=== PATIENT | male | born 1935 | race African-American/Black ===

== ENCOUNTER 2017-09-27 10:08 | Outpatient (CLI) | payer MEDICARE ==
[2017-09-27 12:02] LABS: Hematocrit 39.8 % (42.0-52.0); Mean Platelet Volume 9.6 fL (7.4-10.4); Red Blood Cell (RBC) Count 4.51 mill/uL (4.70-6.10); White Blood Cell (WBC) Count 8.4 thou/uL (4.8-10.8)
[2017-09-27 12:09] LABS: PTT 31.5 SEC (22.9-36.1); Prothrombin Time 14.4 SEC (12.0-14.7)
[2017-09-27 12:23] LABS: Anion Gap 12 mmol/L (10-20); BUN (Urea Nitrogen) 19 mg/dL (8.4-25.7); Calc. Creatinine Clearance 0 mL/min (70-130); Calcium 9.8 mg/dL (7.8-10.44); Carbon Dioxide 24 mmol/L (23-31); Chloride 104 mmol/L (98-107); Estimated GFR-MDRD Greater than 90
== END 2017-09-27 10:09 | disposition home or self-care (01) ==
LOC: LABBT 10:08
PROVIDERS: ATTEND Surgery
DX: Z01.818 Encounter for other preprocedural examination (principal); M47.12 Other spondylosis with myelopathy, cervical region; M47.22 Other spondylosis with radiculopathy, cervical region
CPT/HCPCS: 80048; 85027; 85610; 85730; 87081

== ENCOUNTER 2017-09-27 10:30 | Inpatient (IN) | payer MEDICARE ==
[2017-10-04] MEDS ORDERED: Thrombin 5000 UNITS/5 ML VIAL ONE (06:36)
[2017-10-04] MEDS ORDERED: Bacitracin Zinc Ointment 30 gm TUBE ONE (06:36)
[2017-10-04] MEDS ORDERED: Sodium Chloride 0.9% 20 ML ONE (06:36)
[2017-10-04] MEDS ORDERED: CEFAZOLIN/Water 2 GM/20 ML SYRINGE ONE (06:56)
[2017-10-04] MEDS ORDERED: Phenylephrine 10 MG/NS 250 ML 250 ML ONE (08:11)
[2017-10-04] MEDS ORDERED: Dexamethasone 20 MG/5 ML VIAL ONE ×2 (09:48→16:58)
[2017-10-04] MEDS ORDERED: Promethazine HCl 25 MG/ML VIAL SLOW IVP PRN (12:58)
[2017-10-04] MEDS ORDERED: Promethazine HCl 25 MG/ML VIAL IM PRN ×2 (12:58→13:46)
[2017-10-04] MEDS ORDERED: Meperidine HCl/PF 25 MG/ML VIAL SLOW IVP PRN (12:58)
[2017-10-04] MEDS ORDERED: Ondansetron HCl/PF 4 MG/2 ML Vial IVP PRN ×2 (12:58→13:46)
[2017-10-04] MEDS ORDERED: Acetaminophen 325 MG TAB PO PRN (13:46)
[2017-10-04] MEDS ORDERED: Mag-Al 1200 mg/1200 mg/30 ML UDCUP PO PRN (13:46)
[2017-10-04] MEDS ORDERED: Acetaminophen/Codeine 30-300mg Tablet PO PRN (13:46)
[2017-10-04] MEDS ORDERED: Bisacodyl 10 MG SUPP PR PRN (13:46)
[2017-10-04] MEDS ORDERED: tiZANidine HCl 4 MG TAB PO PRN (13:46)
[2017-10-04] MEDS ORDERED: Milk Of Magnesia 30 ML UDCUP PO PRN (13:46)
[2017-10-04] MEDS ORDERED: Fleet Enema 133 ML BOT PR PRN (13:46)
[2017-10-04] MEDS ORDERED: Naloxone HCl 0.4 mg/ml Vial ONE ×2 (13:57→17:14)
[2017-10-04] MEDS ORDERED: CEFAZOLIN/Water 2 GM/20 ML SYRINGE SLOW IVP SCH (14:00)
[2017-10-04] MEDS ORDERED: SUGAMMADEX SODIUM 200 MG/2 ML VIAL ONE (14:12)
[2017-10-04] MEDS ORDERED: SUGAMMADEX SODIUM 500 MG/5 ML VIAL ONE (14:15)
--- NOTE | 2017-10-04 14:44 | OP ---
DATE OF PROCEDURE: 10/04/2017 OR: OR #12. WOUND TYPE: Type 1 wound. SURGEON: Benedict Saucedo M.D. [employer] COMPLIANCE MANAGER: Abhilash Shaw PA-C. PREPROCEDURE DIAGNOSES: Severe cervical stenosis C3-C5 with spinal cord compression and neurological decline. POSTPROCEDURE DIAGNOSES: Severe cervical stenosis C3-C5 with spinal cord compression and neurologica l decline. PROCEDURE: 1. Anterior C3-C4, C4-C5 diskectomies for decompression of the spinal cord and nerve roots. 2. Placement of interbody spacers C3-C4, C4-C5 for arthrodesis with interbody spacers packed with lo gabriella bone autograft C3-C4, C4-C5. 3. Anterior cervical plate and screw fixation C3, C4, C5 for effusion. 4. Use of operative microscope for microdissection. 5. Cervical laminectomy, C3, C4, C5 for decompression of the spinal cord and nerves. 6. Posterior cervical stabilization, C3, C4, C5 bilaterally with screw tigist construct. 8. Posterolateral fusion C3, C4, C5, local bone autograft obtained from same incision and allograft with screw tigist fixation C3, C4, C5. PROCEDURE: After informed consent was obtained from the patient, the patient brought to OR 12. [facility] patient pause and identification was carried out. He was placed under excellent general endotrach eal anesthesia and positioned supine on the operating room table. All appropriate points were padded . We identified the right anterior oblique sophia that would allow for approach to the C3, C4, C5 segm ents and this region was sterilely cleansed, prepared, and draped. Proper patient pause and identifi cation was carried out. The wound was then opened with a combination of sharp, monopolar and blunt dissection, and we proceeded lateral to the larynx and pharynx and medial to the right carotid sheath . We identified the prevertebral layer of deep cervical fascia and the C3, C4, C5 segments were expo sed. Retraction was placed and distraction occurred at C3-C4. The microscope was then brought in th e field for microdissection and diskectomy at C3-C4 was performed. We were satisfied with the decomp ression of the spinal cord and nerves roots at that segment. We then turned our attention to prepara tion of the endplates and an interbody spacer of appropriate dimension was placed at C3-C4. This was packed with local bone autograft obtained from same incision and allograft. We then released the di straction and performed distraction at C4-C5 and a diskectomy at C4-C5 was performed as well with sat isfactory decompression of the spinal cord and nerve roots. We prepared the endplates and an interbo dy spacer of appropriate dimension was placed at C4-C5. This was packed with local bone autograft ob tained from same incision and allograft. Following the placement of the spacers at C3-C4, C4-C5 the microscope was then removed and anterior cervical plate and screw fixation at C3,C4, C5 then occurred . Final tightening also occurred. Copious irrigation. Hemostasis was maintained throughout. The w ound was then closed in anatomic layers over a drain. The patient then emerged from anesthesia. We then turned our attention to placement of the Claire eugenia to his skull and positioned him pron e on the operating room table with his cervical spine kept in neutral position. We turned our attent ion to identifying the posterior sophia that would allow for approach to C3, C4, C5 segments. This reg ion was sterilely cleansed, prepared, and draped. Proper patient pause and identification was miguel a martinez. The wound was then opened with a combination of sharp, monopolar and blunt dissection, C3, C4 , and C5 dorsal spines and lamina were exposed. Localization film confirmed our area of interest. W e then performed C3, C4, C5 laminectomies, partial facetectomies and foraminotomies with excellent de compression of the common dural tube and nerve roots. Following this, we then turned our attention t o placement of screw tigist fixation at C3, C4, C5 using standard anatomic landmarks and technique along with fluoroscopy. Screws were placed, we had excellent decompression of the spinal cord and nerve r oots. Rods were then placed. Final tightening occurred. Copious irrigation occurred. Hemostasis w as maximized throughout. Decortication occurred along the lateral masses for arthrodesis at C3, C4, C5, posterolateral fusion and local bone autograft obtained from same incision and allograft was plac ed over this region. Final tightening of the screws and rods occurred with cap screws. The wound wa s then closed in anatomic layers following the sprinkling of vancomycin powder, meticulous hemostasis and copious irrigation. The patient then emerged from anesthesia.
[2017-10-04 15:13] LABS: Oxyhemoglobin 79.4 % (94.0-97.0); Sodium 143 mmol/L (135-148)
[2017-10-04 15:15] LABS: Mode BAGGING; Modified Allen's Test POSITIVE; Vent NO
[2017-10-04 15:44] LABS: Troponin I Less than 0.010 ng/mL (< 0.028)
--- NOTE | 2017-10-04 15:51 | RAD ---
PORTABLE SEMI UPRIGHT FRONTAL CHEST RADIOGRAPH: Date: 10-04-17 Comparison: None. History: Respiratory distress, status post code. FINDINGS: Incompletely imaged cutaneous catrina overlie the base of the neck and curls at the base of the neck on the right as well. There is focal right perihilar and infrahilar airspace disease, nonspecific. Th ere is increased density in the left base suggesting left lower lobe consolidation/collapse. IMPRESSION: Focal areas of opacity in the right perihilar/infrahilar region in the left lung base. Findings may s ignify infectious pneumonitis, aspiration or volume loss. Follow up imaging advised to document resol ution. POS: KAYODE
[2017-10-04 16:20] LABS: Modified Allen's Test POSITIVE; Sodium 139 mmol/L (135-148)
[2017-10-04 16:22] LABS: Mode NIPPV; Pressure Support 10 cmH2O; Vent YES
[2017-10-04] MEDS: Gabapentin 300 MG CAP PO SCH ×2 (16:33→20:14)
[2017-10-04] MEDS: Sodium Chloride 0.9% 1,000 ML IV SCH (16:35)
[2017-10-04] MEDS ORDERED: EPINEPHrine 1 MG/10 ML Abboject SYRINGE ONE (16:39)
[2017-10-04] MEDS ORDERED: Ondansetron HCl/PF 4 MG/2 ML Vial ONE (16:58)
[2017-10-04] MEDS ORDERED: ePHEDrine/0.9% NaCl/PF SYRINGE 50 mg/10 ml ONE (16:58)
[2017-10-04] MEDS ORDERED: Lidocaine 1% PF 5 ML VIAL ONE (16:58)
[2017-10-04] MEDS ORDERED: Propofol 200 MG/20 ML VIAL ONE (16:58)
[2017-10-04] MEDS ORDERED: Glycopyrrolate 0.2 MG/ML 5 ML SYRINGE ONE (16:58)
[2017-10-04] MEDS ORDERED: Vecuronium 10 MG VIAL ONE (16:58)
[2017-10-04] MEDS ORDERED: PHENYLEPHRINE-NS 100 MCG/ML 10 ML SYRINGE ONE (16:58)
[2017-10-04 18:37] LABS: Troponin I 0.027 ng/mL (< 0.028)
[2017-10-04] MEDS: Morphine 4 MG/ML VIAL SLOW IVP PRN ×3 (18:41→22:56)
[2017-10-04] MEDS: CEFAZOLIN/Water 2 GM/20 ML SYRINGE SLOW IVP SCH (19:13)
[2017-10-04] MEDS: HYDROcodone/Acetaminophen 7.5/325 mg Tablet PO PRN (19:13)
[2017-10-04] MEDS: PROVENTIL INHALER 6.7 G (200 INHALATIONS) INH SCH (19:25)
[2017-10-04] MEDS: hydrALAZINE 20 MG/ML VIAL SLOW IVP PRN (19:44)
[2017-10-04] MEDS: Timolol 0.5% Ophth Soln 5 ml Bottle EA EYE SCH (20:13)
[2017-10-04] MEDS: Brimonidine Tartrate 0.2% Ophth Soln 5 ml Bottle EA EYE SCH (20:18)
--- NOTE | 2017-10-04 21:50 | CON ---
DATE OF CONSULTATION: 10/04/2017 REASON FOR ADMISSION: Cervical stenosis status post anterior cervical diskectomy and fusion. REASON FOR CONSULTATION: Cardiac arrest and medical management of high blood pressure and obstructiv e sleep apnea. CONSULTING PHYSICIAN: Dr. Benedict Saucedo. HISTORY OF PRESENT ILLNESS: This is an 82-year-old pleasant gentleman who was apparently in his [facility], came into the hospital because he was having significant cervical stenosis with sy mptoms and had ACDF procedure done. In the recovery period, in the PACU, he had a cardiac arrest, wh ich lasted about 2 minutes and they initiated CPR. On looking through the notes, I believe the cord was done for asystole. They got pulse immediately. He got 3 rounds of Narcan. Later, he had a stro ng pulse and blood pressure and was breathing on his own. He was later sent to the CCU for further i ntensive monitoring. I have been consulted for the evaluation and treatment of medical problems. Th e patient right now is awake and alert. He is a little disoriented because he is post-anesthesia, bu t he answers most of the questions appropriately. He is on BiPAP and the vital signs are stable. He denies any fever or chills. Admits to some pain in the area of the surgery. Denies any shortness o f breath at this point. PAST MEDICAL HISTORY: Significant for morbid obesity, anemia, neuropathy, bilateral cataract, hypert ension, history of cerebral infarction on 05/2017, asthma, chronic obstructive lung disease, knee estrada n, neck pain, spinal stenosis, chronic back pain and polymyalgia rheumatica. PAST SURGICAL HISTORY: Significant for inguinal hernia repair and ACDF procedure right now. ALLERGIES: No known drug allergies. MEDICATIONS AT HOME: Include amlodipine 10 mg, aspirin, atorvastatin, benazepril 40 mg p.o. daily, e yedrops, furosemide 20 mg p.o. daily, gabapentin 300 p.o. 3 times a day, Lumigan eyedrops, spironolac tone 25 p.o. daily, Flomax 0.4 mg daily and neb treatments. FAMILY HISTORY: Negative for diabetes and hypertension. SOCIAL HISTORY: He was a former smoker, no longer smokes. Alcohol: Does not drink alcohol. Does n ot do any recreational drugs. He is .' REVIEW OF SYSTEMS: Significant for status post cardiac arrest. Otherwise, no fever, no chills, no h eadache, no eye pain, no hearing loss, no latencies. No cough. Some shortness of breath. No diarrh ea, dysuria or polyuria. No memory or mood changes. No neck pain. PHYSICAL EXAMINATION: VITAL SIGNS: The patient's blood pressure right now is 169/83, pulse is 85, satting 95%, breathing a t the rate of 20 on BiPAP with a pressure of 12/6. GENERAL: The patient is lying in bed in some distress because of the pain. HEENT: Atraumatic and normocephalic. Pupils are equally round and reactive to light. Extraocular m ovements are intact. Mucous membranes are moist. NECK: Supple. There is a dressing in place at the site of surgery. CHEST: Some coarse breath sounds heard, otherwise good air entry in the upper lobes. HEART: S1 and S2 normal. No murmurs or gallops. ABDOMEN: Soft and obese. EXTREMITIES: No cyanosis, clubbing or edema. No cyanosis present. Edema +1 present. Distal pulses are palpable. NEUROLOGIC: Cannot be fully evaluated, but he will follow simple commands. Moves all 4 extremities. LABORATORY DATA: Postop labs include ABG, which shows a pH of 7.34, pCO2 of 47 and pO2 of 54. ABG a t 4:00 showed a pH of 7.13, pCO2 of 87 and O2 of 81. Troponin was 0.01. Hemoglobin from 09/27 was 1 2.6. WBC was 8.4. Sodium is 135. Creatinine was 0.95 and BUN is 19. ASSESSMENT AND PLAN: 1. Status post cardiac arrest. He is doing well right now. We will monitor him in the ICU. We brittany l trend troponins, get Cardiology consult and get an echocardiogram. 2. Respiratory insufficiency, on BiPAP. We will follow Dr. Farias's plan. 3. Severe cervical stenosis status post anterior cervical diskectomy and fusion. We will follow marjan bullock's plan. 4. Hypertension. We will monitor hypertension and put him on p.r.n. hydralazine. 5. Morbid obesity. The patient has been counseled. 6. Obstructive sleep apnea, possible on BiPAP. 7. History of chronic obstructive pulmonary disease. Appears to be stable right now. 8. Chronic back pain. We will do pain management. 9. Sequential compression devices for deep venous thrombosis prophylaxis. Thanks Dr. Saucedo for letting me participate in this patient's care. I will work with consultants an d further caring for the patient.
[2017-10-04] MEDS ORDERED: cloNIDine 0.2mg/24 Hour PATCH TD SCH (23:00)
[2017-10-05] MEDS: hydrALAZINE 20 MG/ML VIAL SLOW IVP PRN ×3 (00:34→23:04)
[2017-10-05 00:44] LABS: Troponin I 0.027 ng/mL (< 0.028)
[2017-10-05] MEDS: CEFAZOLIN/Water 2 GM/20 ML SYRINGE SLOW IVP SCH ×3 (03:46→19:49)
[2017-10-05] MEDS: Sodium Chloride 0.9% 1,000 ML IV SCH (03:47)
[2017-10-05] MEDS: Morphine 4 MG/ML VIAL SLOW IVP PRN (03:51)
[2017-10-05 06:01] LABS: Band 3 % (5-11); Hematocrit 39.4 % (42.0-52.0); Mean Platelet Volume 10.8 fL (7.4-10.4); Neutrophil 83 % (42-75); Red Blood Cell (RBC) Count 4.49 mill/uL (4.70-6.10); White Blood Cell (WBC) Count 20.2 thou/uL (4.8-10.8)
--- NOTE | 2017-10-05 06:21 | CON ---
DATE OF CONSULTATION: 10/04/2017 HISTORY OF PRESENT ILLNESS: Kb Correa is an 82-year-old morbidly obese gentleman, who under went cervical surgery C3-C5, C3-C5 laminectomy and posterior fusion postoperatively. Apparently what he was told that he was having difficulty breathing, he was already extubated. He was given apparen tly 3 amps of Narcan as per the nurses' notes, he was placed on noninvasive ventilation and transferr ed to the ICU. He had been consulted at this time. He is on a BiPAP. History is rather sketchy at this time because on the BiPAP. He appears to answer questions appropri ately, several of his initial blood gases showed evidence of respiratory acidosis with the pH of 7.29 , pCO2 of 50, pO2 of 67 and unknown FiO2. Initial information from the medical records is [facility]. He has had ce rvical pain for a period of time. MRI was done, which was reviewed by Dr. Saucedo and surgery was don e as of today, please review Dr. Saucedo's extensive surgical note. Postop anesthesia note, for which he had respiratory distress, requiring apparently no medication, but is . MEDICATIONS: He has a long list of medication from home, which is outlined including eyedrops for gl aucoma, Lumigan, aspirin, gabapentin 300 three times, Lipitor 20, Timolol, Combigan, Ventolin inhaler , Flomax, and Lasix. PAST MEDICAL HISTORY: Pertinent for COPD, cervical radiculopathy, glaucoma, probably congestive hear t failure, morbid obesity, anemia, asthma by history, COPD by history, BPH. PAST SURGICAL HISTORY: Included inguinal hernia surgery. REVIEW OF SYSTEMS: Unobtainable. PHYSICAL EXAMINATION: VITAL SIGNS: His sats are 93 at a BiPAP 12/6, rate of 8, pulse 85, blood pressure 150/82. GENERAL: He is awake, responsive. CHEST: Decreased breath sounds without any wheezing. CARDIAC: Normal S1 and S2. No gallops. ABDOMEN: No masses. EXTREMITIES: No edema. LABORATORY AND X-RAY FINDINGS: Chest x-ray shows a questionable right-sided infiltrate. His lab oth erwise shows from [place], white count 8000, H&H are 12 and 39, platelet count was normal. INR was n ormal. Creatinine was normal. Electrolytes are normal. Calcium is normal, glucose 106. IMPRESSION: 1. Hypoventilation post cervical spine surgery. 2. Morbid obesity. 3. Chronic obstructive pulmonary disease. 4. Probably sleep apnea. 5. Polymyalgia. 6. Benign prostatic hypertrophy. 7. Hypertension. PLAN: I have started aggressive neb treatments. Continue noninvasive ventilation until much more aw celena and empiric antibiotics, supportive care. We will follow. Forty-five minutes critical care time.
[2017-10-05 06:46] LABS: Anion Gap 14 mmol/L (10-20); BUN (Urea Nitrogen) 18 mg/dL (8.4-25.7); Calc. Creatinine Clearance 128 mL/min (70-130); Carbon Dioxide 22 mmol/L (23-31); Chloride 106 mmol/L (98-107); Estimated GFR-MDRD Greater than 90
--- NOTE | 2017-10-05 07:45 | EKG ---
Test Reason : POST CODE BLUE Blood Pressure : / mmHG Vent. Rate : 097 BPM Atrial Rate : 097 BPM P-R Int : 172 ms QRS Dur : 086 ms QT Int : 390 ms P-R-T Axes : 061 025 030 degrees QTc Int : 495 ms Normal sinus rhythm Nonspecific ST abnormality Prolonged QT Abnormal ECG No previous ECGs available Confirmed by SHIRLEY ELLSWORTH ([id number]) on 10/05/2017 7:45:22 AM Referred By: TAI Confirmed By:SHIRLEY ELLSWORTH
[2017-10-05] MEDS: PROVENTIL INHALER 6.7 G (200 INHALATIONS) INH SCH (07:46)
--- NOTE | 2017-10-05 07:59 | RAD ---
AP VIEW OF THE CHEST: INDICATION: Daily CCU exam. COMPARISON: Prior exam dated 10/04/17. FINDINGS: Cardiomegaly and central edema pattern has worsened. There are now small bilateral pleural effusions that have increased in size. No pneumothorax is evident. No acute osseous abnormality is evident. IMPRESSION: Worsening volume overload or congestive heart failure. POS: SERA
--- NOTE | 2017-10-05 08:49 | PRG ---
DATE OF SERVICE: 10/05/2017 This morning he is awake, alert, responsive. He is off the BiPAP. No major distress. PHYSICAL EXAMINATION: VITAL SIGNS: Sats are 90% on 2 liters, pulse 99, blood pressure 180/70, respirations 26. CHEST: Chest revealed decreased breath sounds without any wheezing. CARDIAC: Normal S1-S2. ABDOMEN: Soft. No masses. LABORATORY: Shows his white count 20,000, H&H 12 and 39, platelet 140. X-ray shows a right-sided infiltrate. Creatinine is normal. Potassium 5.8. IMPRESSION: 1. Respiratory failure, possibly aspiration pneumonia. 2. Morbid obesity, probably sleep apnea. 3. Chronic obstructive pulmonary disease. 4. Hypertension. 5. Cervical fusion surgery. PLAN: Await results of the echo. I have added Maxipime, neb treatments, supportive care. Continue observation in the ICU. I will follow.
[2017-10-05] MEDS ORDERED: Cefepime 2 GM in Sodium Chloride 0.9% 100 ML IVPB SCH (09:00)
[2017-10-05] MEDS: Furosemide 20 MG TAB PO SCH (09:09)
[2017-10-05] MEDS: Atorvastatin Calcium 20 MG TAB PO SCH (09:09)
[2017-10-05] MEDS: Gabapentin 300 MG CAP PO SCH ×3 (09:09→20:12)
[2017-10-05] MEDS: Brimonidine Tartrate 0.2% Ophth Soln 5 ml Bottle EA EYE SCH ×2 (09:09→20:15)
[2017-10-05] MEDS: Tamsulosin HCl 0.4 MG CAP PO SCH (09:10)
[2017-10-05] MEDS: Latanoprost 0.005% Ophth Soln 2.5 ml Bottle EA EYE SCH (09:10)
[2017-10-05] MEDS: Losartan 25 MG TAB PO SCH (09:10)
[2017-10-05] MEDS: Timolol 0.5% Ophth Soln 5 ml Bottle EA EYE SCH ×2 (09:10→20:16)
--- NOTE | 2017-10-05 09:28 | PRG ---
DATE OF SERVICE: 10/05/2017 Mr. Corera is postoperative day 1 from an anterior posterior decompression and fusion of the cervic al spine with severe spinal cord compression and neurological decline. In the immediate postoperativ e period, he required extra and pulmonary assistance given that he was retaining carbon dioxide. His respiratory acidosis was corrected. The patient this morning is doing well. His chest x-ray shows pulmonary edema and our medical colleagues work toward reducing his volume overload. Neurologically, he is at his baseline and states improvement in his hand function and sensation. He moves all extre mities to command. He is tolerating some orals. We will keep him on clears and initiate Lovenox. W e will continue to follow him in the ICU.
[2017-10-05] MEDS: Cefepime 2 GM, Syringe 2.5 ML in Sterile Water 10 ML SLOW IVP SCH ×2 (09:58→20:28)
[2017-10-05] MEDS: HYDROcodone/Acetaminophen 7.5/325 mg Tablet PO PRN ×2 (11:26→16:11)
[2017-10-05] MEDS: traMADol HCl 50 MG TAB PO PRN (12:38)
--- NOTE | 2017-10-05 15:38 | PDOC.PN ---
- Subjective Encounter Start Date: 10/05/17 Encounter Start Time: 15:37 doing better more alert no n/v no f/c - Objective MAR Reviewed: Yes Vital Signs & Weight: Vital Signs (12 hours) Temp Pulse Pulse Pulse Resp BP BP 10/05/17 13:48 100 24 H 10/05/17 12:00 99.1 F 10/05/17 10:26 98 176/67 H 10/05/17 10:02 99 193/78 H 10/05/17 09:10 99 173/56 H 10/05/17 09:05 88 94 173/56 H 10/05/17 07:56 10/05/17 07:54 99 24 H 10/05/17 07:45 98.9 F 97 23 H 10/05/17 07:00 98.9 F 10/05/17 04:00 98.3 F BP Pulse Ox Pulse Ox 10/05/17 13:48 94 L 10/05/17 12:00 10/05/17 10:26 100 10/05/17 10:02 10/05/17 09:10 10/05/17 09:05 182/67 H 10/05/17 07:56 99 10/05/17 07:54 100 10/05/17 07:45 100 10/05/17 07:00 10/05/17 04:00 Weight Weight 318 lb 9.087 oz Most Recent Monitor Data Heart Rate from ECG 100 NIBP 192/66 NIBP BP-Mean 79 Respiration from ECG 31 SpO2 92 I&O: 10/04/17 10/05/17 10/06/17 06:59 06:59 06:59 Intake Total 978 Output Total 5778 1115 Balance -647 -1115 Result Diagrams: 10/05/17 04:17 10/05/17 06:11 Phys Exam - Physical Examination Constitutional: NAD HEENT: PERRLA Neck: no nodes dressing noted Respiratory: no wheezing Cardiovascular: no significant murmur Gastrointestinal: soft Musculoskeletal: pulses present Neurological: moves all 4 limbs Psychiatric: A&O x 3 Dx/Plan (1) Cardiac arrest Code(s): I46.9 - CARDIAC ARREST, CAUSE UNSPECIFIED Status: Acute Comment: trop neg f/u card plan (2) Respiratory insufficiency Code(s): R06.89 - OTHER ABNORMALITIES OF BREATHING Status: Acute Comment: possible asp pna (3) ANDREW (obstructive sleep apnea) Code(s): G47.33 - OBSTRUCTIVE SLEEP APNEA (ADULT) (PEDIATRIC) Status: Acute (4) Morbid obesity Code(s): E66.01 - MORBID (SEVERE) OBESITY DUE TO EXCESS CALORIES Status: Acute (5) COPD (chronic obstructive pulmonary disease) Status: Acute (6) Cervical stenosis of spinal canal Code(s): M48.02 - SPINAL STENOSIS, CERVICAL REGION Status: Acute Comment: s/ p acdf on 10/04 (7) Elevated WBC count Code(s): D72.829 - ELEVATED WHITE BLOOD CELL COUNT, UNSPECIFIED Status: Acute - Plan * add cefepime * f/u nsx and stores clerk plan
[2017-10-05] MEDS ORDERED: Metoprolol Tartrate 5 MG/5 ML VIAL IVP SCH (16:12)
[2017-10-05] MEDS ORDERED: Furosemide 20 MG/2 ML VIAL SLOW IVP SCH (16:15)
[2017-10-05] MEDS ORDERED: Amlodipine 5 MG TAB PO SCH (16:30)
[2017-10-05] MEDS: cloNIDine 0.2 MG TAB PO SCH (20:12)
[2017-10-05] MEDS: Enoxaparin Sodium 40 MG/0.4 ML SYRINGE SC SCH (20:13)
--- NOTE | 2017-10-05 21:35 | CON ---
DATE OF CONSULTATION: 10/05/2017 REASON FOR CONSULTATION: Hypertension, respiratory insufficiency post-surgery. HISTORY OF PRESENT ILLNESS: Mr. Correa is an 82-year-old gentleman. He came in for cervical spine surgery yesterday and in the early postoperative period, he was extubated, but then had a respirator y arrest and apparently had to be ventilated and given Narcan and the patient improved and was transp orted to the Intensive Care Unit. There is no cardiac history that I can ascertain. Patient has been hypertensive with difficulty in controlling of his blood pressure. PAST MEDICAL HISTORY: 1. Cervical spine stenosis, status post surgery. 2. History of anemia. 3. Hypertension 4. History of cerebral infarction in 05/2017. 5. Chronic obstructive pulmonary disease. PAST SURGICAL HISTORY: Inguinal hernia repair. ALLERGIES: None known. HOME MEDICATIONS: 1. Amlodipine 10 mg daily. 2. Atorvastatin. 3. Benazepril. 4. Furosemide. FAMILY HISTORY: Negative for diabetes or hypertension. SOCIAL HISTORY: Former smoker. No longer smokes. REVIEW OF SYSTEMS: Constitutional: No significant weight gain or loss. Vision: No changes. Heari ng: No changes. Pulmonary: No cough or wheezing. Gastrointestinal: No nausea, vomiting, or diarr hea. Cardiovascular: No chest pain. Skin: No rashes. PHYSICAL EXAMINATION: GENERAL: A pleasant elderly gentleman, in no distress. VITAL SIGNS: Blood pressure 180/72, pulse 103, it is regular. HEENT: Eyes, sclerae nonicteric. Mouth, mucous membranes moist. NECK: Supple. No lymphadenopathy. LUNGS: Clear. No wheezing, rales or rhonchi. CARDIAC: Normal S1, normal S2. There is no murmur, rub, or gallop. EXTREMITIES: There is 1+ edema. SKIN: Warm and dry. PERTINENT LABORATORY AND X-RAY FINDINGS: Potassium is 5.8. EKG, no acute ischemia, sinus rhythm. I do not see an EKG from today. We will order one. ASSESSMENT: 1. Respiratory failure after extubation, reverse with Narcan. 2. Hypertension, difficult to control. 3. Hyperkalemia. PLAN: 1. We will give a single dose of furosemide. 2. A single dose of metoprolol IV and then selective beta-jennifer orally. 3. Resume amlodipine, which I believe he is on previously.
[2017-10-06] MEDS: CEFAZOLIN/Water 2 GM/20 ML SYRINGE SLOW IVP SCH (03:14)
[2017-10-06 05:03] LABS: Hematocrit 37.8 % (42.0-52.0); Neutrophil 88 % (42-75); Red Blood Cell (RBC) Count 4.41 mill/uL (4.70-6.10); White Blood Cell (WBC) Count 18.6 thou/uL (4.8-10.8)
[2017-10-06 05:14] LABS: Anion Gap 12 mmol/L (10-20); BUN (Urea Nitrogen) 17 mg/dL (8.4-25.7); Calc. Creatinine Clearance 133 mL/min (70-130); Calcium 9.1 mg/dL (7.8-10.44); Carbon Dioxide 24 mmol/L (23-31); Chloride 104 mmol/L (98-107); Estimated GFR-MDRD Greater than 90
[2017-10-06] MEDS: Brimonidine Tartrate 0.2% Ophth Soln 5 ml Bottle EA EYE SCH ×2 (09:25→21:19)
[2017-10-06] MEDS: Atorvastatin Calcium 20 MG TAB PO SCH (09:25)
[2017-10-06] MEDS: cloNIDine 0.2 MG TAB PO SCH ×3 (09:25→21:16)
[2017-10-06] MEDS: Amlodipine 5 MG TAB PO SCH (09:25)
[2017-10-06] MEDS: Furosemide 20 MG TAB PO SCH (09:26)
[2017-10-06] MEDS: Latanoprost 0.005% Ophth Soln 2.5 ml Bottle EA EYE SCH (09:26)
[2017-10-06] MEDS: Timolol 0.5% Ophth Soln 5 ml Bottle EA EYE SCH ×2 (09:26→21:17)
[2017-10-06] MEDS: Tamsulosin HCl 0.4 MG CAP PO SCH (09:26)
[2017-10-06] MEDS: Losartan 25 MG TAB PO SCH (09:26)
[2017-10-06] MEDS: Gabapentin 300 MG CAP PO SCH ×3 (09:26→21:16)
--- NOTE | 2017-10-06 09:28 | HP ---
DATE OF SERVICE: 10/06/2017 This morning he is awake, alert, responsive. He has had breakfast. He denies any difficulty breathi ng. PHYSICAL EXAMINATION: VITAL SIGNS: Blood pressure is still elevated 165/83, respirations 30, temperature 99. CHEST: Chest revealed bilateral crackles. CARDIAC: Normal S1-S2. ABDOMEN: Soft. No masses. LABORATORY: White count 18,000, H&H 12 and 37, platelet count is 117. Electrolytes are normal. X-ray shows infiltrates. Cultures are so far negative. Echocardiogram shows his EF was normal. IMPRESSION: 1. Pneumonia. 2. Morbid obesity. 3. Sleep apnea. 4. Status post cervical injury. 5. Hypertension. PLAN: He is on Norvasc, Catapres, antibiotics, neb treatments, supportive care. I will follow. He can be transferred out of the ICU.
--- NOTE | 2017-10-06 09:42 | RAD ---
PORTABLE SEMIUPRIGHT FRONTAL CHEST RADIOGRAPH: Date: 10-06-17 Comparison: 10-05-17 History: FINDINGS: There is post-operative hardware overlying the lower cervical spine, incompletely imaged. Catheter tu emma curls over the thoracic inlet on the right. No obvious pneumothorax is seen. There is pulmonary vascular congestion. There is interstitial and al veolar opacity and bilateral perihilar regions in both lung bases, left greater than right, grossly u nchanged. IMPRESSION: No significant interval change. POS: KAYODE
[2017-10-06] MEDS: Cefepime 2 GM, Syringe 2.5 ML in Sterile Water 10 ML SLOW IVP SCH ×2 (09:49→21:16)
[2017-10-06] MEDS ORDERED: Dextrose 50% Abboject 50 ML SYRINGE SLOW IVP PRN (10:02)
[2017-10-06] MEDS ORDERED: HumaLOG 300 UNITS/3 ML VIAL SC PRN (10:02)
[2017-10-06] MEDS ORDERED: Dextrose 5% in Water 1,000 ML IV PRN (10:02)
--- NOTE | 2017-10-06 12:48 | PDOC.PN ---
- Subjective Encounter Start Date: 10/06/17 Encounter Start Time: 12:46 Patient seen and examined. No new complaints. No overnight events - Objective MAR Reviewed: Yes Vital Signs & Weight: Vital Signs (12 hours) Temp Pulse Resp BP Pulse Ox 10/06/17 12:00 98.8 F 10/06/17 11:31 87 32 H 97 10/06/17 09:26 88 164/68 H 10/06/17 09:25 89 164/68 H 10/06/17 08:00 99.1 F 10/06/17 07:57 99.1 F 96 30 H 96 10/06/17 06:07 96 30 H 98 10/06/17 03:58 99.0 F Weight Weight 306 lb 0.026 oz Most Recent Monitor Data Heart Rate from ECG 88 NIBP 161/71 NIBP BP-Mean 99 Respiration from ECG 32 SpO2 95 I&O: 10/05/17 10/06/17 10/07/17 06:59 06:59 06:59 Intake Total 978 1346.5 400 Output Total 1625 3435 618 Balance -647 -2088.5 -218 Result Diagrams: 10/06/17 04:21 10/06/17 04:21 Additional Labs: Accuchecks 10/06/17 11:54 POC Glucose 151 H Phys Exam - Physical Examination Constitutional: NAD HEENT: PERRLA Neck: no JVD dressing in place Respiratory: no rales scattered rhonchi Cardiovascular: RRR, no significant murmur Gastrointestinal: soft, non-tender Musculoskeletal: pulses present Neurological: moves all 4 limbs Psychiatric: A&O x 3 Dx/Plan (1) Cardiac arrest Code(s): I46.9 - CARDIAC ARREST, CAUSE UNSPECIFIED Status: Acute Comment: trop neg f/u card plan (2) Respiratory insufficiency Code(s): R06.89 - OTHER ABNORMALITIES OF BREATHING Status: Acute Comment: possible asp pna (3) ANDREW (obstructive sleep apnea) Code(s): G47.33 - OBSTRUCTIVE SLEEP APNEA (ADULT) (PEDIATRIC) Status: Acute (4) Morbid obesity Code(s): E66.01 - MORBID (SEVERE) OBESITY DUE TO EXCESS CALORIES Status: Acute (5) COPD (chronic obstructive pulmonary disease) Status: Acute (6) Cervical stenosis of spinal canal Code(s): M48.02 - SPINAL STENOSIS, CERVICAL REGION Status: Acute Comment: s/ p acdf on 10/04 (7) Elevated WBC count Code(s): D72.829 - ELEVATED WHITE BLOOD CELL COUNT, UNSPECIFIED Status: Acute (8) PNA (pneumonia) Code(s): J18.9 - PNEUMONIA, UNSPECIFIED ORGANISM Status: Acute - Plan * cont abx, neb rx * f/u nsx plan * pulm input appreciated
[2017-10-06] MEDS: traMADol HCl 50 MG TAB PO PRN (13:17)
--- NOTE | 2017-10-06 19:32 | PRG ---
DATE OF SERVICE: 10/06/2017 SUBJECTIVE: Mr. Correa is postoperative day 2 from an anterior posterior decompression fusion for spinal cord compression. He is doing very well this morning neurologically and he moves his upper an d lower extremities more briskly, he is being treated for aspiration pneumonia as there was concern C ardiac and pulmonary event and immediate postoperative period. He is being evaluated by Cardiology a nd we appreciate the care of our Cardiology and our Pulmonary colleagues, Dr. Farias. Dr. Farias has erickson nged him for to cefepime to cover just in case for aspiration pneumonia. Sputum culture has been sen t. He is tolerating some oral and is even get up to a MEDIchair, we transfer him to the floor and pl an to likely remove his MARK drain tomorrow. Obviously, he will need inpatient rehabilitation because of his body habitus, and age, he is in high medical risk.
[2017-10-06] MEDS: Enoxaparin Sodium 40 MG/0.4 ML SYRINGE SC SCH (21:32)
[2017-10-06] MEDS ORDERED: Clopidogrel Bisulfate 75 MG TAB ONE (22:18)
[2017-10-07] MEDS: hydrALAZINE 20 MG/ML VIAL SLOW IVP PRN ×2 (01:17→04:55)
[2017-10-07 06:17] LABS: Anion Gap 15 mmol/L (10-20); BUN (Urea Nitrogen) 19 mg/dL (8.4-25.7); Calc. Creatinine Clearance 146 mL/min (70-130); Calcium 9.5 mg/dL (7.8-10.44); Carbon Dioxide 23 mmol/L (23-31); Chloride 101 mmol/L (98-107); Estimated GFR-MDRD Greater than 90
[2017-10-07 06:44] LABS: Band 2 % (5-11); Hematocrit 37.6 % (42.0-52.0); Mean Platelet Volume 10.6 fL (7.4-10.4); Neutrophil 76 % (42-75); Red Blood Cell (RBC) Count 4.36 mill/uL (4.70-6.10); White Blood Cell (WBC) Count 18.9 thou/uL (4.8-10.8)
--- NOTE | 2017-10-07 07:59 | RAD ---
AP VIEW OF CHEST: Date: 10/07/17 INDICATION: Shortness of breath. COMPARISON: Prior exam dated 10/06/17. FINDINGS/IMPRESSION: There is cardiomegaly with pulmonary vascular congestion and small bilateral pleural effusions which are stable from the comparison examination. No pneumothorax is evident. Posterior neck soft tissue dr zulema catheter is similar to the comparison dated 10/06/17. POS: [facility]
[2017-10-07] MEDS: Brimonidine Tartrate 0.2% Ophth Soln 5 ml Bottle EA EYE SCH ×2 (08:15→20:14)
[2017-10-07] MEDS: Tamsulosin HCl 0.4 MG CAP PO SCH (08:16)
[2017-10-07] MEDS: Losartan 25 MG TAB PO SCH (08:16)
[2017-10-07] MEDS: Amlodipine 5 MG TAB PO SCH (08:16)
[2017-10-07] MEDS: Gabapentin 300 MG CAP PO SCH ×3 (08:16→20:10)
[2017-10-07] MEDS: Atorvastatin Calcium 20 MG TAB PO SCH (08:16)
[2017-10-07] MEDS: cloNIDine 0.2 MG TAB PO SCH ×3 (08:17→20:09)
[2017-10-07] MEDS: Furosemide 20 MG TAB PO SCH (08:17)
[2017-10-07] MEDS: Timolol 0.5% Ophth Soln 5 ml Bottle EA EYE SCH ×2 (08:19→20:14)
--- NOTE | 2017-10-07 09:06 | PRG ---
DATE OF SERVICE: 10/07/2017 Mr. Correa is doing well, now postoperative day 3 from anterior posterior decompression and fusion of the cervical spine. He moves his extremities well with improved strength compared to before surge ry. His drain output has been minimal. We will plan to remove either today or tomorrow. His hemody namic and pulmonary status have improved.
--- NOTE | 2017-10-07 09:12 | PRG ---
DATE OF SERVICE: 10/07/2017 This morning denies any pain or shortness of breath. PHYSICAL EXAMINATION: VITAL SIGNS: His blood pressure is 156/82, O2 sat 94% on 2 liters, temperature 99, respirations 18. CHEST: Chest reveals bilateral rhonchi. CARDIAC: Normal S1-S2. No gallops. ABDOMEN: Soft. No masses. LABORATORY: White count 18,000, H&H 11 and 37, platelet count 127. X-ray shows much improvement in his bilateral infiltrates. IMPRESSION: 1. Status post aspiration. 2. Morbid obesity. 3. Status post cervical injury. 4. Normal ejection fraction. PLAN: Switch him over to oral antibiotics. Disposition as per primary care physician. He probably needs an outpatient sleep study.
--- NOTE | 2017-10-07 09:44 | PDOC.PN ---
- Subjective Encounter Start Date: 10/07/17 Encounter Start Time: 10:30 Subjective: Patient without complaint. Tired this AM. No fever. Denies SOB though -: mild increased WOB. - Objective MAR Reviewed: Yes Vital Signs & Weight: Vital Signs (12 hours) Temp Pulse Resp BP BP Pulse Ox 10/07/17 09:02 99.1 F 99 24 H 94 L 10/07/17 08:19 99 156/82 H 10/07/17 08:17 156/82 H 10/07/17 08:16 99 156/82 H 10/07/17 07:30 99.1 F 95 24 H 156/82 H 94 L 10/07/17 06:51 101 H 25 H 99 10/07/17 06:00 103 H 155/70 H 10/07/17 04:55 102 H 183/82 H 10/07/17 04:20 98.3 F 103 H 28 H 183/82 H 100 10/07/17 02:30 165/70 H 10/07/17 01:17 96 179/95 H 10/07/17 00:22 98.6 F 96 28 H 179/95 H 96 10/06/17 23:42 95 26 H 80 L Weight Weight 306 lb 0.026 oz Most Recent Monitor Data Heart Rate from ECG 79 NIBP 152/65 NIBP BP-Mean 89 Respiration from ECG 30 SpO2 97 I&O: 10/06/17 10/07/17 10/08/17 06:59 06:59 06:59 Intake Total 1346.5 872 Output Total 3435 2308 Balance -2088.5 -1436 Result Diagrams: 10/07/17 04:13 10/07/17 04:13 Additional Labs: Accuchecks 10/07/17 10/06/17 00:27 11:54 POC Glucose 135 H 151 H Phys Exam - Physical Examination Constitutional: NAD HEENT: moist MMs Respiratory: clear to auscultation bilateral mild increased WOB Cardiovascular: RRR Gastrointestinal: soft, positive bowel sounds Neurological: non-focal, moves all 4 limbs Psychiatric: normal affect Dx/Plan (1) Cardiac arrest Code(s): I46.9 - CARDIAC ARREST, CAUSE UNSPECIFIED Status: Resolved Comment : trop neg f/u card plan (2) PNA (pneumonia) Code(s): J18.9 - PNEUMONIA, UNSPECIFIED ORGANISM Status: Acute Qualifiers: Pneumonia type: aspiration pneumonia Comment: Switching to oral Cefdinir 10/07/17 (3) COPD (chronic obstructive pulmonary disease) Status: Acute (4) Cervical stenosis of spinal canal Code(s): M48.02 - SPINAL STENOSIS, CERVICAL REGION Status: Acute Comment: s/ p acdf on 10/04, drain out 10/07 or 10/08 (5) Morbid obesity Code(s): E66.01 - MORBID (SEVERE) OBESITY DUE TO EXCESS CALORIES Status: Acute (6) ANDREW (obstructive sleep apnea) Code(s): G47.33 - OBSTRUCTIVE SLEEP APNEA (ADULT) (PEDIATRIC) Status: Acute Comment: needs outpatient sleep study - Plan cont current plan of care, continue antibiotics, PT/OT, DVT proph w/lovenox, DVT proph w/SCDs Will go to [facility] when ready to d/c from Neurosurg point * . - Discharge Day Encounter end time: 11:00
[2017-10-07] MEDS: Cefdinir 300 MG CAP PO SCH ×2 (09:51→20:14)
[2017-10-07] MEDS: Latanoprost 0.005% Ophth Soln 2.5 ml Bottle EA EYE SCH (09:51)
[2017-10-07] MEDS: Enoxaparin Sodium 40 MG/0.4 ML SYRINGE SC SCH (20:10)
[2017-10-08 06:54] LABS: Hematocrit 34.5 % (42.0-52.0); Mean Platelet Volume 10.2 fL (7.4-10.4); Neutrophil 87 % (42-75); Red Blood Cell (RBC) Count 3.95 mill/uL (4.70-6.10); White Blood Cell (WBC) Count 14.7 thou/uL (4.8-10.8)
[2017-10-08 07:07] LABS: Anion Gap 13 mmol/L (10-20); BUN (Urea Nitrogen) 25 mg/dL (8.4-25.7); Calc. Creatinine Clearance 145 mL/min (70-130); Carbon Dioxide 25 mmol/L (23-31); Chloride 102 mmol/L (98-107); Estimated GFR-MDRD Greater than 90
--- NOTE | 2017-10-08 08:34 | PDOC.PN ---
- Subjective Encounter Start Date: 10/08/17 Encounter Start Time: 11:30 Subjective: Patient sleepy, doing well. Wants to eat normal food. MARK drain removed toda - Objective MAR Reviewed: Yes Vital Signs & Weight: Vital Signs (12 hours) Temp Pulse Resp BP Pulse Ox 10/08/17 07:04 82 16 94 L 10/08/17 01:51 96 10/08/17 01:19 16 10/08/17 00:00 98.7 F 80 20 133/79 94 L Weight Weight 306 lb 0.026 oz Most Recent Monitor Data Heart Rate from ECG 79 NIBP 152/65 NIBP BP-Mean 89 Respiration from ECG 30 SpO2 97 I&O: 10/07/17 10/08/17 10/09/17 06:59 06:59 06:59 Intake Total 872 720 Output Total 2308 1125 Balance -1436 -405 Result Diagrams: 10/08/17 05:42 10/08/17 05:42 Additional Labs: Accuchecks 10/07/17 10/07/17 23:30 12:23 POC Glucose 134 H 137 H Phys Exam - Physical Examination Constitutional: NAD HEENT: moist MMs dressin in place Respiratory: no wheezing, no rales, no rhonchi Cardiovascular: RRR Gastrointestinal: soft, non-tender, positive bowel sounds Neurological: non-focal, moves all 4 limbs Psychiatric: normal affect, A&O x 3 Dx/Plan (1) Cardiac arrest Code(s): I46.9 - CARDIAC ARREST, CAUSE UNSPECIFIED Status: Resolved Comment : trop neg f/u card plan (2) PNA (pneumonia) Code(s): J18.9 - PNEUMONIA, UNSPECIFIED ORGANISM Status: Acute Qualifiers: Pneumonia type: aspiration pneumonia Comment: Switching to oral Cefdinir 10/07/17 (3) COPD (chronic obstructive pulmonary disease) Status: Acute (4) Cervical stenosis of spinal canal Code(s): M48.02 - SPINAL STENOSIS, CERVICAL REGION Status: Acute Comment: s/ p acdf on 10/04, drain out 10/07 or 10/08 (5) Morbid obesity Code(s): E66.01 - MORBID (SEVERE) OBESITY DUE TO EXCESS CALORIES Status: Acute (6) ANDREW (obstructive sleep apnea) Code(s): G47.33 - OBSTRUCTIVE SLEEP APNEA (ADULT) (PEDIATRIC) Status: Acute Comment: needs outpatient sleep study - Plan cont current plan of care, continue antibiotics, PT/OT, DVT proph w/lovenox, DVT proph w/SCDs (d) * . - Discharge Day Encounter end time: 12:00
[2017-10-08] MEDS: Brimonidine Tartrate 0.2% Ophth Soln 5 ml Bottle EA EYE SCH ×2 (08:46→21:33)
[2017-10-08] MEDS: Furosemide 20 MG TAB PO SCH (08:48)
[2017-10-08] MEDS: Losartan 25 MG TAB PO SCH (08:48)
[2017-10-08] MEDS: Atorvastatin Calcium 20 MG TAB PO SCH (08:48)
[2017-10-08] MEDS: cloNIDine 0.2 MG TAB PO SCH ×3 (08:48→21:39)
[2017-10-08] MEDS: Amlodipine 5 MG TAB PO SCH (08:49)
[2017-10-08] MEDS: Gabapentin 300 MG CAP PO SCH ×3 (08:49→21:34)
[2017-10-08] MEDS: Cefdinir 300 MG CAP PO SCH ×2 (08:49→21:34)
[2017-10-08] MEDS: Tamsulosin HCl 0.4 MG CAP PO SCH (08:49)
[2017-10-08] MEDS: Timolol 0.5% Ophth Soln 5 ml Bottle EA EYE SCH ×2 (08:50→21:39)
[2017-10-08] MEDS: Latanoprost 0.005% Ophth Soln 2.5 ml Bottle EA EYE SCH (08:58)
--- NOTE | 2017-10-08 12:10 | PRG ---
DATE OF SERVICE: 10/08/2017 Mr. Stewart continues to recover from his anterior posterior decompression and fusion. He is doing well this morning. He is just worked with physical therapy as such as a bit fatigued. We have remov ed his MARK drain, his wounds are healing well. We will continue to push towards rehab.
[2017-10-08 12:35] VITALS: BMI 43.9
--- NOTE | 2017-10-08 21:17 | PRG ---
DATE OF SERVICE: 10/08/2017 SERVICE: Pulmonary Medicine. INTERVAL HISTORY: The patient is doing fine from a respiratory standpoint. He is breathing comfortably and has no specific pain that is worried about. That being said, he is little drowsy today. He wakes up and answers questions appropriately, but without stimulation, he drifts off back to sleep. There were no overnight events. PHYSICAL EXAMINATION: VITAL SIGNS: Afebrile currently with a T-max of 100.1, pulse 73, blood pressure 126/75, respirations 20, saturation 98% on 2 liters nasal cannula. GENERAL: The patient is awake and alert, in no apparent distress. Patient is somnolent. He is in no apparent distress, however. HEENT: Normocephalic, atraumatic. Sclerae are white, conjunctivae pink. Oral and mucosa is moist without lesions. LUNGS: Excellent air entry. There is no prolonged expiratory phase. No wheezing, rhonchi, or crackles are appreciated. HEART: Normal rate. Regular. ABDOMEN: Distended. Bowel sounds are active, however. No rebound or guarding is present. There is no tenderness to palpation. MUSCULOSKELETAL: No cyanosis or clubbing. Trace to 1+ pitting in the bilateral lower extremities. GENITOURINARY: Quintana catheter in place. LABORATORY DATA: WBC 14.7 and down trending, hemoglobin 10.9, platelets 125, 000. Neutrophil count is 87%, which is gently up trending. PH 7.13, pCO2 of 87 , pO2 of 65 previously. Basic metabolic profile is completely unremarkable. Respiratory culture is unremarkable. IMAGING: Chest x-ray demonstrates cardiomegaly with pulmonary vascular congestion. There is a small bilateral pleural effusions, which are stable. Posterior neck soft tissue drainage catheter is identified. PHYSICAL EXAMINATION: VITAL SIGNS: Currently afebrile with T-max of 100.1, pulse 67, blood pressure 126/75, respirations 20, saturation 98% on 2 liters nasal cannula. GENERAL: The patient is somnolent, but answers questions appropriately. He drifts back to sleep without stimulation. HEENT: Normocephalic, atraumatic. Sclerae are white, conjunctivae pink. Oral and nasal mucosa is moist without lesions. There is a bandage over his anterior neck. LUNGS: Decent air entry. No prolonged expiratory phase or wheezing is appreciated. HEART: Normal rate and regular. ABDOMEN: Soft. Distended. Bowel sounds are present. No rebound or guarding. There is no tenderness to palpation. MUSCULOSKELETAL: No cyanosis or clubbing. Trace pitting in the bilateral lower extremities. GENITOURINARY: Quintana catheter in place. LABORATORY DATA: WBC down trending to 14.7, hemoglobin 10.9, platelets 125, 000. Basic metabolic profile is unremarkable. Respiratory culture is negative to date. IMAGING: Chest x-ray demonstrates enlarged heart with bilateral pleural effusions versus soft tissue attenuation. ASSESSMENT: 1. Acute hypoxic respiratory failure. 2. Morbid obesity with likely obstructive sleep apnea. 3. Status post laminectomy and fusion, postoperative day #4. PLAN: We will continue to monitor for signs of infection. If any are identified, CXR and culture will be obtained. We will continue our supportive care including empiric antibiotics for the time being. Pulmonary will continue to follow. URVASHI
[2017-10-08] MEDS: Enoxaparin Sodium 40 MG/0.4 ML SYRINGE SC SCH (21:34)
[2017-10-09 06:07] LABS: #Eosinphils 0.1 thou/uL (0.0-0.7); #Lymphocytes 1.7 thou/uL (1.20-3.40); #Monocytes 1.7 thou/uL (0.11-0.59); #Neutrophils 8.3 thou/uL (1.40-6.50); %Basophils 0.3 % (0.0-1.0); %Eosinophils 0.6 % (0.0-10.0); %Lymphocytes 14.7 % (21.0-51.0); %Monocytes 14.2 % (0.0-10.0); Hematocrit 34.7 % (42.0-52.0); Red Blood Cell (RBC) Count 3.94 mill/uL (4.70-6.10); White Blood Cell (WBC) Count 11.8 thou/uL (4.8-10.8)
[2017-10-09 06:27] LABS: Anion Gap 11 mmol/L (10-20); BUN (Urea Nitrogen) 26 mg/dL (8.4-25.7); Calc. Creatinine Clearance 139 mL/min (70-130); Calcium 8.7 mg/dL (7.8-10.44); Carbon Dioxide 25 mmol/L (23-31); Chloride 104 mmol/L (98-107); Estimated GFR-MDRD Greater than 90
[2017-10-09] MEDS: Losartan 25 MG TAB PO SCH (09:22)
[2017-10-09] MEDS: Atorvastatin Calcium 20 MG TAB PO SCH (09:22)
[2017-10-09] MEDS: Amlodipine 5 MG TAB PO SCH (09:23)
[2017-10-09] MEDS: Cefdinir 300 MG CAP PO SCH ×2 (09:23→20:09)
[2017-10-09] MEDS: cloNIDine 0.2 MG TAB PO SCH ×3 (09:24→20:10)
[2017-10-09] MEDS: Furosemide 40 MG TAB PO SCH (09:24)
[2017-10-09] MEDS: Tamsulosin HCl 0.4 MG CAP PO SCH (09:25)
[2017-10-09] MEDS: Gabapentin 300 MG CAP PO SCH ×3 (09:25→20:09)
[2017-10-09] MEDS: Brimonidine Tartrate 0.2% Ophth Soln 5 ml Bottle EA EYE SCH ×2 (09:33→20:09)
[2017-10-09] MEDS: Latanoprost 0.005% Ophth Soln 2.5 ml Bottle EA EYE SCH (09:35)
[2017-10-09] MEDS: Timolol 0.5% Ophth Soln 5 ml Bottle EA EYE SCH ×2 (09:36→20:08)
--- NOTE | 2017-10-09 12:50 | PRG ---
DATE OF SERVICE: 10/09/2017 Mr. Correa is doing well. He is 5 days out from an anterior to posterior decompression and fusion for severe cervical myelopathy. He continues to feel as if he is improving in regards to his arms an d legs. We will remove his Quintana catheter today. His wounds are healing satisfactorily. His streng th remains stable. I think at this point we do continue to push towards inpatient rehabilitation. F rom a cardiac and pulmonary standpoint, he has continued to remain stable as well.
--- NOTE | 2017-10-09 15:13 | PDOC.PN ---
- Subjective Encounter Start Date: 10/09/17 Encounter Start Time: 08:15 Subjective: breathing better, no trouble swallowing -: not sure he can see, responds to verbal questions well - Objective MAR Reviewed: Yes Vital Signs & Weight: Vital Signs (12 hours) Temp Pulse Resp BP BP Pulse Ox 10/09/17 11:59 75 16 96 10/09/17 11:24 97.9 F 68 16 129/65 95 10/09/17 09:36 71 132/72 10/09/17 09:24 123/73 10/09/17 09:23 71 123/73 10/09/17 07:07 71 14 96 10/09/17 07:05 97.8 F 71 18 132/73 93 L Weight Admit Weight 320 lb 12.3 oz Weight 306 lb Most Recent Monitor Data Heart Rate from ECG 79 NIBP 152/65 NIBP BP-Mean 89 Respiration from ECG 30 SpO2 97 I&O: 10/08/17 10/09/17 10/10/17 06:59 06:59 06:59 Intake Total 720 480 Output Total 1125 225 Balance -405 255 Result Diagrams: 10/09/17 05:49 10/09/17 05:49 Additional Labs: Accuchecks 10/09/17 10/08/17 04:16 16:16 POC Glucose 140 H 135 H Phys Exam - Physical Examination HEENT: PERRLA, moist MMs Neck: no JVD dressing+ Respiratory: no wheezing rhochi+ Cardiovascular: RRR, no significant murmur Gastrointestinal: soft, non-tender, no distention, positive bowel sounds Musculoskeletal: no edema, pulses present Neurological: non-focal, moves all 4 limbs Dx/Plan (1) Acute respiratory failure with hypoxia and hypercarbia Code(s): J96.01 - ACUTE RESPIRATORY FAILURE WITH HYPOXIA; J96.02 - ACUTE RESPIRATORY FAILURE WITH HYPERCAPNIA Status: Resolved (2) COPD (chronic obstructive pulmonary disease) Status: Chronic Qualifiers: COPD type: COPD with acute exacerbation Qualified Code(s): J44.1 - Chronic obstructive pulmonary disease with (acute) exacerbation (3) Cervical stenosis of spinal canal Code(s): M48.02 - SPINAL STENOSIS, CERVICAL REGION Status: Acute Comment: s/ p acdf on 10/04, C3-5 (4) Morbid obesity Code(s): E66.01 - MORBID (SEVERE) OBESITY DUE TO EXCESS CALORIES Status: Chronic (5) ANDREW (obstructive sleep apnea) Code(s): G47.33 - OBSTRUCTIVE SLEEP APNEA (ADULT) (PEDIATRIC) Status: Chronic Comment: needs outpatient sleep study - Plan is on omnicef -: lasix daily -: deconditioned, needs PT to mobilize more -: rehab eval -: mild glucose intolerance/dm#2 is stable * . Review of Systems - Medications/Allergies Allergies/Adverse Reactions: Allergies Allergy/AdvReac Type Severity Reaction Status Date / Time No Known Allergies Allergy Verified 09/27/17 11:13 Medications: Current Medications Acetaminophen (Tylenol) 650 mg PO Q4H PRN PRN Reason: SUTTON/Fever Or Mild Pain (1-3) Acetaminophen/Codeine Phosphate (Tylenol #3) 1 tab PO Q3H PRN PRN Reason: Mild Pain (1-3) Hydrocodone Bitart/Acetaminophen ([place] 7.5/325) 1 tab PO Q4H PRN PRN Reason: Moderate Pain (4-6) Last Admin: 10/05/17 16:11 Dose: 1 tab Al Hydroxide/Mg Hydroxide (Maalox) 30 ml PO Q4H PRN PRN Reason: Indigestion Albuterol/Ipratropium (Duoneb) 3 ml NEB [id number] [facility] Last Admin: 10/09/17 11:59 Dose: 3 ml Amlodipine Besylate (Norvasc) 5 mg PO DAILY [facility] Last Admin: 10/09/17 09:23 Dose: 5 mg Atorvastatin Calcium (Lipitor) 20 mg PO DAILY [facility] Last Admin: 10/09/17 09:22 Dose: 20 mg Bisacodyl (Dulcolax) 10 mg [place] Q12H PRN PRN Reason: Constipation Brimonidine Tartrate (Alphagan 0.2% Ophth Soln) 1 drop EA EYE BID [facility] Last Admin: 10/09/17 09:33 Dose: 1 drop Cefdinir (Omnicef) 300 mg PO BID [facility] Stop: 10/12/17 09:01 Last Admin: 10/09/17 09:23 Dose: 300 mg Clonidine (Catapres) 0.2 mg PO TID [facility] Last Admin: 10/09/17 09:24 Dose: 0.2 mg Dextrose/Water (Dextrose 50%) 25 gm SLOW IVP PRN PRN PRN Reason: Hypoglycemia Enoxaparin Sodium (Lovenox) 40 mg SC 2100 [facility] Last Admin: 10/08/17 21:34 Dose: 40 mg Furosemide (Lasix) 40 mg PO DAILY [facility] Last Admin: 10/09/17 09:24 Dose: 40 mg Gabapentin (Neurontin) 300 mg PO TID [facility] Last Admin: 10/09/17 09:25 Dose: 300 mg Glucagon (Glucagon) 1 mg IM PRN PRN PRN Reason: Hypoglycemia Hydralazine HCl (Apresoline) 10 mg SLOW IVP Q4H PRN PRN Reason: SBP Greater Than 180 Last Admin: 10/07/17 04:55 Dose: 10 mg Dextrose/Water (D5w) 1,000 mls @ 0 mls/hr IV .Q0M PRN; As Directed PRN Reason: Hypoglycemia Insulin Human Lispro (Humalog) 0 units SC .MODERATE SLIDING SC PRN PRN Reason: Moderate Correctional Scale Latanoprost (Xalatan 0.005% Ophth Soln) 1 drop EA EYE DAILY [facility] Last Admin: 10/09/17 09:35 Dose: 1 drop Losartan Potassium (Cozaar) 50 mg PO DAILY [facility] Last Admin: 10/09/17 09:22 Dose: 50 mg Magnesium Hydroxide (Milk Of Magnesium) 30 ml PO Q12H PRN PRN Reason: Constipation Metoprolol Succinate (Toprol Xl) 25 mg PO DAILY [facility] Last Admin: 10/09/17 09:23 Dose: 25 mg Morphine Sulfate (Morphine) 2 mg SLOW IVP Q1H PRN PRN Reason: Severe Pain (7-10) Last Admin: 10/05/17 03:51 Dose: 2 mg Ondansetron HCl (Zofran) 4 mg IVP Q6H PRN PRN Reason: Nausea Last Admin: 10/07/17 04:55 Dose: 4 mg Promethazine HCl (Phenergan) 12.5 mg IM Q4H PRN PRN Reason: Nausea/Vomiting Sodium Chloride (Flush - Normal Saline) 10 ml IVF PRN PRN PRN Reason: Saline Flush Tamsulosin HCl (Flomax) 0.4 mg PO DAILY [facility] Last Admin: 10/09/17 09:25 Dose: 0.4 mg Timolol Maleate (Timoptic 0.5% Ophth Soln) 1 drop EA EYE BID [facility] Last Admin: 10/09/17 09:36 Dose: 1 drop Tizanidine HCl (Zanaflex) 4 mg PO Q6H PRN PRN Reason: Muscle Spasm Last Admin: 10/05/17 14:24 Dose: 4 mg Tramadol HCl (Ultram) 50 mg PO Q6H PRN PRN Reason: Mild Pain (1-3) Last Admin: 10/06/17 13:17 Dose: 50 mg
[2017-10-09] MEDS: Enoxaparin Sodium 40 MG/0.4 ML SYRINGE SC SCH (20:10)
--- NOTE | 2017-10-09 20:20 | PRG ---
DATE OF SERVICE: 10/09/2017 SERVICE: Pulmonary Medicine. INTERVAL HISTORY: The patient is doing great from a respiratory standpoint. He denies any current f mirna, chills, nausea or vomiting, shortness of breath or chest discomfort. He is otherwise returnin g to his usual state of health. He continues to have persistent weakness in the bilateral upper and lower extremities. PHYSICAL EXAMINATION: VITAL SIGNS: Afebrile, pulse 68, blood pressure 129/65, respirations 20, saturation 96% on 2 liters nasal cannula. GENERAL: The patient is awake and alert, in no apparent distress. LUNGS: Excellent air entry with no prolonged expiratory phase, wheezing, rhonchi, or crackles. HEART: Normal rate, regular. ABDOMEN: Soft, nontender, nondistended. Bowel sounds positive. MUSCULOSKELETAL: No cyanosis or clubbing. No pitting in the bilateral lower extremities. LABORATORY DATA: WBC count trends to 11.8, hemoglobin 10.7, platelets 145,000 and improving. Neutro lavonne count has returned to normal. Basic metabolic profile is essentially unremarkable. Respiratory culture is unremarkable today. ASSESSMENT: 1. Acute hypoxic respiratory failure. 2. Morbid obesity with likely obstructive sleep apnea. 3. Status post laminectomy and fusion, postoperative day #5. PLAN: The patient is doing really quite well from a respiratory standpoint. We will continue monito ring for signs of infection, but if anything, things are starting to settle down a touch. Supportive care including empiric antibiotics will be continued. Dr. Farias will resume care in the morning.
[2017-10-10 05:47] LABS: #Basophils 0.1 thou/uL (0.0-0.2); #Eosinphils 0.3 thou/uL (0.0-0.7); #Monocytes 1.2 thou/uL (0.11-0.59); #Neutrophils 7.5 thou/uL (1.40-6.50); %Basophils 0.7 % (0.0-1.0); %Eosinophils 2.7 % (0.0-10.0); %Lymphocytes 17.7 % (21.0-51.0); %Monocytes 11.1 % (0.0-10.0); Hematocrit 34.8 % (42.0-52.0); Mean Platelet Volume 9.2 fL (7.4-10.4); Red Blood Cell (RBC) Count 3.96 mill/uL (4.70-6.10)
[2017-10-10 06:11] LABS: Anion Gap 10 mmol/L (10-20); BUN (Urea Nitrogen) 17 mg/dL (8.4-25.7); Calc. Creatinine Clearance 154 mL/min (70-130); Calcium 9.1 mg/dL (7.8-10.44); Carbon Dioxide 30 mmol/L (23-31); Chloride 102 mmol/L (98-107); Estimated GFR-MDRD Greater than 90
[2017-10-10] MEDS: Amlodipine 5 MG TAB PO SCH (09:52)
[2017-10-10] MEDS: Gabapentin 300 MG CAP PO SCH ×3 (09:52→22:00)
[2017-10-10] MEDS: Cefdinir 300 MG CAP PO SCH ×2 (09:52→22:00)
[2017-10-10] MEDS: Atorvastatin Calcium 20 MG TAB PO SCH (09:52)
[2017-10-10] MEDS: Furosemide 40 MG TAB PO SCH (09:52)
[2017-10-10] MEDS: cloNIDine 0.2 MG TAB PO SCH ×3 (09:52→22:01)
[2017-10-10] MEDS: Tamsulosin HCl 0.4 MG CAP PO SCH (09:52)
[2017-10-10] MEDS: Losartan 25 MG TAB PO SCH (09:52)
[2017-10-10] MEDS: Timolol 0.5% Ophth Soln 5 ml Bottle EA EYE SCH ×2 (09:54→22:06)
[2017-10-10] MEDS: Latanoprost 0.005% Ophth Soln 2.5 ml Bottle EA EYE SCH (09:55)
[2017-10-10] MEDS: Brimonidine Tartrate 0.2% Ophth Soln 5 ml Bottle EA EYE SCH ×2 (09:55→22:00)
--- NOTE | 2017-10-10 10:39 | PRG ---
DATE OF SERVICE: 10/10/2017 This is a postoperative note. Mr. Correa is now postoperative day #6, having undergone an anterior cervical diskectomy and fusion and posterior cervical laminectomy with fusion. The patient states he is continuing to improve. He does continue to have some swallowing difficulties, although is tolerating a clear liquid diet and p ills. He has been working minimally with therapies at this time. He does note that his hand functio n continues to improve. He remains at baseline neurologic exam including good strength in the bilate ral upper and bilateral lower extremities. His incisions are clean, dry, and intact and healing well . At this time, he is stable for discharge to [facility]dc when arrangements have been made and he i s cleared by our medical team. I have updated his paperwork and his appropriate outpatient followup appointments have been scheduled. I have discussed this with our nursing team as well and hope for d ischarge either later today or tomorrow.
--- NOTE | 2017-10-10 10:59 | PDOC.PN ---
- Subjective Encounter Start Date: 10/10/17 Encounter Start Time: 08:40 Subjective: awake, no sob -: says he has no trouble swallowing - Objective MAR Reviewed: Yes Vital Signs & Weight: Vital Signs (12 hours) Temp Pulse Resp BP BP Pulse Ox 10/10/17 09:52 131/71 10/10/17 08:33 97.6 F 69 22 H 131/71 95 10/10/17 06:59 70 14 10/10/17 00:18 69 12 Weight Admit Weight 320 lb 12.3 oz Weight 306 lb Most Recent Monitor Data Heart Rate from ECG 79 NIBP 152/65 NIBP BP-Mean 89 Respiration from ECG 30 SpO2 97 I&O: 10/09/17 10/10/17 10/11/17 06:59 06:59 06:59 Intake Total 480 600 Output Total 225 1600 Balance 255 -1000 Result Diagrams: 10/10/17 04:23 10/10/17 04:23 Additional Labs: Accuchecks 10/09/17 16:11 POC Glucose 123 H Phys Exam - Physical Examination HEENT: PERRLA, moist MMs Neck: no JVD dressing+ Respiratory: no wheezing, no rales Cardiovascular: RRR, no significant murmur Gastrointestinal: soft, non-tender, positive bowel sounds Musculoskeletal: pulses present, edema present Neurological: non-focal, moves all 4 limbs Dx/Plan (1) Acute respiratory failure with hypoxia and hypercarbia Code(s): J96.01 - ACUTE RESPIRATORY FAILURE WITH HYPOXIA; J96.02 - ACUTE RESPIRATORY FAILURE WITH HYPERCAPNIA Status: Resolved (2) COPD (chronic obstructive pulmonary disease) Status: Chronic Qualifiers: COPD type: COPD with acute exacerbation Qualified Code(s): J44.1 - Chronic obstructive pulmonary disease with (acute) exacerbation (3) Cervical stenosis of spinal canal Code(s): M48.02 - SPINAL STENOSIS, CERVICAL REGION Status: Acute Comment: s/ p acdf on 10/04, C3-5 (4) Morbid obesity Code(s): E66.01 - MORBID (SEVERE) OBESITY DUE TO EXCESS CALORIES Status: Chronic (5) ANDREW (obstructive sleep apnea) Code(s): G47.33 - OBSTRUCTIVE SLEEP APNEA (ADULT) (PEDIATRIC) Status: Chronic Comment: needs outpatient sleep study - Plan awaiting rehab/swing bed -: is deconditioned, needs to mobilize -: omnicef, nebs -: dc plan per NSX advice -: outpt sleep study, needs cpap at night * . Review of Systems - Medications/Allergies Allergies/Adverse Reactions: Allergies Allergy/AdvReac Type Severity Reaction Status Date / Time No Known Allergies Allergy Verified 09/27/17 11:13 Medications: Current Medications Acetaminophen (Tylenol) 650 mg PO Q4H PRN PRN Reason: SUTTON/Fever Or Mild Pain (1-3) Acetaminophen/Codeine Phosphate (Tylenol #3) 1 tab PO Q3H PRN PRN Reason: Mild Pain (1-3) Hydrocodone Bitart/Acetaminophen ([place] 7.5/325) 1 tab PO Q4H PRN PRN Reason: Moderate Pain (4-6) Last Admin: 10/05/17 16:11 Dose: 1 tab Al Hydroxide/Mg Hydroxide (Maalox) 30 ml PO Q4H PRN PRN Reason: Indigestion Albuterol/Ipratropium (Duoneb) 3 ml NEB [id number] [facility] Last Admin: 10/10/17 06:59 Dose: 3 ml Amlodipine Besylate (Norvasc) 5 mg PO DAILY [facility] Last Admin: 10/10/17 09:52 Dose: 5 mg Atorvastatin Calcium (Lipitor) 20 mg PO DAILY [facility] Last Admin: 10/10/17 09:52 Dose: 20 mg Bisacodyl (Dulcolax) 10 mg [place] Q12H PRN PRN Reason: Constipation Brimonidine Tartrate (Alphagan 0.2% Oph Sol) 1 drop EA EYE BID [facility] Last Admin: 10/10/17 09:55 Dose: 1 drop Cefdinir (Omnicef) 300 mg PO BID [facility] Stop: 10/12/17 09:01 Last Admin: 10/10/17 09:52 Dose: 300 mg Clonidine (Catapres) 0.2 mg PO TID [facility] Last Admin: 10/10/17 09:52 Dose: 0.2 mg Dextrose/Water (Dextrose 50%) 25 gm SLOW IVP PRN PRN PRN Reason: Hypoglycemia Enoxaparin Sodium (Lovenox) 40 mg SC 2100 [facility] Last Admin: 10/09/17 20:10 Dose: 40 mg Furosemide (Lasix) 40 mg PO DAILY [facility] Last Admin: 10/10/17 09:52 Dose: 40 mg Gabapentin (Neurontin) 300 mg PO TID [facility] Last Admin: 10/10/17 09:52 Dose: 300 mg Glucagon (Glucagon) 1 mg IM PRN PRN PRN Reason: Hypoglycemia Hydralazine HCl (Apresoline) 10 mg SLOW IVP Q4H PRN PRN Reason: SBP Greater Than 180 Last Admin: 10/07/17 04:55 Dose: 10 mg Dextrose/Water (D5w) 1,000 mls @ 0 mls/hr IV .Q0M PRN; As Directed PRN Reason: Hypoglycemia Insulin Human Lispro (Humalog) 0 units SC .MODERATE SLIDING SC PRN PRN Reason: Moderate Correctional Scale Latanoprost (Xalatan 0.005% Ophth Soln) 1 drop EA EYE DAILY [facility] Last Admin: 10/10/17 09:55 Dose: 1 drop Losartan Potassium (Cozaar) 50 mg PO DAILY [facility] Last Admin: 10/10/17 09:52 Dose: 50 mg Magnesium Hydroxide (Milk Of Magnesium) 30 ml PO Q12H PRN PRN Reason: Constipation Metoprolol Succinate (Toprol Xl) 25 mg PO DAILY [facility] Last Admin: 10/10/17 09:53 Dose: 25 mg Morphine Sulfate (Morphine) 2 mg SLOW IVP Q1H PRN PRN Reason: Severe Pain (7-10) Last Admin: 10/05/17 03:51 Dose: 2 mg Ondansetron HCl (Zofran) 4 mg IVP Q6H PRN PRN Reason: Nausea Last Admin: 10/07/17 04:55 Dose: 4 mg Promethazine HCl (Phenergan) 12.5 mg IM Q4H PRN PRN Reason: Nausea/Vomiting Sodium Chloride (Flush - Normal Saline) 10 ml IVF PRN PRN PRN Reason: Saline Flush Tamsulosin HCl (Flomax) 0.4 mg PO DAILY [facility] Last Admin: 10/10/17 09:52 Dose: 0.4 mg Timolol Maleate (Timoptic 0.5% Ophth Soln) 1 drop EA EYE BID [facility] Last Admin: 10/10/17 09:54 Dose: 1 drop Tizanidine HCl (Zanaflex) 4 mg PO Q6H PRN PRN Reason: Muscle Spasm Last Admin: 10/05/17 14:24 Dose: 4 mg Tramadol HCl (Ultram) 50 mg PO Q6H PRN PRN Reason: Mild Pain (1-3) Last Admin: 10/06/17 13:17 Dose: 50 mg
--- NOTE | 2017-10-10 11:13 | PRG ---
DATE OF SERVICE: 10/10/2017 He is having some neck pain, but denies any difficulty breathing. PHYSICAL EXAMINATION: VITAL SIGNS: His blood pressure 130/71, saturation 94% on 1 liters, temperature 97, pulse 69. CHEST: Chest revealed decreased breath sounds, no wheezing. CARDIAC: Normal S1, S2, no gallops. ABDOMEN: Soft, no masses. LABORATORY: White count 11,000, H&H 10 and 34, platelet count normal. Electrolytes are normal. IMPRESSION: 1. Pneumonia. 2. Chronic obstructive pulmonary disease. 3. Obstructive sleep apnea. 4. Status post cervical surgery. PLAN: He can be discharged to the senior living on present antibiotics. PT and supportive care. Out patient sleep study if the patient desires to have one.
[2017-10-10] MEDS: Enoxaparin Sodium 40 MG/0.4 ML SYRINGE SC SCH (22:10)
[2017-10-11 06:07] LABS: #Eosinphils 0.3 thou/uL (0.0-0.7); #Lymphocytes 1.9 thou/uL (1.20-3.40); #Monocytes 1.2 thou/uL (0.11-0.59); #Neutrophils 10.2 thou/uL (1.40-6.50); %Basophils 0.1 % (0.0-1.0); %Eosinophils 2.5 % (0.0-10.0); %Monocytes 9.1 % (0.0-10.0); Hematocrit 37.9 % (42.0-52.0); Red Blood Cell (RBC) Count 4.32 mill/uL (4.70-6.10); White Blood Cell (WBC) Count 13.7 thou/uL (4.8-10.8)
[2017-10-11 06:19] LABS: Anion Gap 13 mmol/L (10-20); BUN (Urea Nitrogen) 14 mg/dL (8.4-25.7); Calc. Creatinine Clearance 161 mL/min (70-130); Calcium 9.4 mg/dL (7.8-10.44); Carbon Dioxide 26 mmol/L (23-31); Chloride 100 mmol/L (98-107); Estimated GFR-MDRD Greater than 90
[2017-10-11 07:45] VITALS: BP 143/72; TEMP 98
[2017-10-11] MEDS: Timolol 0.5% Ophth Soln 5 ml Bottle EA EYE SCH (08:24)
[2017-10-11] MEDS: Tamsulosin HCl 0.4 MG CAP PO SCH (08:25)
[2017-10-11] MEDS: Atorvastatin Calcium 20 MG TAB PO SCH (08:25)
[2017-10-11] MEDS: Furosemide 40 MG TAB PO SCH (08:25)
[2017-10-11] MEDS: cloNIDine 0.2 MG TAB PO SCH (08:26)
[2017-10-11] MEDS: Gabapentin 300 MG CAP PO SCH (08:26)
[2017-10-11] MEDS: Amlodipine 5 MG TAB PO SCH (08:26)
[2017-10-11] MEDS: Cefdinir 300 MG CAP PO SCH (08:26)
[2017-10-11] MEDS: Losartan 25 MG TAB PO SCH (08:27)
[2017-10-11] MEDS: Brimonidine Tartrate 0.2% Ophth Soln 5 ml Bottle EA EYE SCH (08:27)
[2017-10-11] MEDS: Latanoprost 0.005% Ophth Soln 2.5 ml Bottle EA EYE SCH (08:27)
--- NOTE | 2017-10-11 08:47 | PRG ---
DATE OF SERVICE: 10/11/2017 POSTOPERATIVE INPATIENT PROGRESS NOTE SUBJECTIVE: Mr. Correa is now postoperative day #7, having undergone anterior cervical fusion. Th e patient remains minimally ambulatory and has not been working with therapies. He does, however, st ate that he continues to feel better and he states the pain into the bilateral shoulders is improving . He has been exercising his hands while in bed and states that the function is better as well. He remains on a clear liquid diet and I am agreeable to starting nutritional supplements as needed. He remains at neurologic baseline with good strength in the bilateral lower and bilateral upper extremit ies with improved strengthening in the bilateral hand intrinsics. [facility] continuing to follow the patient's chronic medical conditions and he is stable for discharge to care home whe never a bed is available. We will check back later today in regards to placement. The patient is do ing well currently. Abhilash Shaw PA-C dictating for Dr. Benedict Saucedo.
[2017-10-11 11:08] LABS: Hemoglobin A1c 6.4 % (4.0-6.0)
--- NOTE | 2017-10-11 12:12 | PRG ---
DATE OF SERVICE: 10/11/2017 SUBJECTIVE: Mr. Correa appears to be in distress. Trying to find a place for him. OBJECTIVE: VITAL SIGNS: Blood pressure 143/72, sats are 96%, temperature 97, blood pressure of 130/80. CHEST: Chest reveals decreased breath sounds, no wheezing. CARDIAC: Normal S1, S2. LABORATORY DATA: White count 13,000. Electrolytes are normal. IMPRESSION: Status post cervical surgery, sleep apnea. PLAN: Try and find placement. Supportive care. Complete antibiotics.
--- NOTE | 2017-10-11 13:05 | PDOC.PN ---
- Subjective Encounter Start Date: 10/11/17 Encounter Start Time: 13:03 Patient seen and examined. No new complaints. No overnight events - Objective MAR Reviewed: Yes Vital Signs & Weight: Vital Signs (12 hours) Temp Pulse Resp BP BP Pulse Ox 10/11/17 08:26 72 143/72 H 10/11/17 08:24 72 143/72 H 10/11/17 07:45 98.0 F 73 18 97 10/11/17 07:44 98.0 F 73 18 143/72 H 97 10/11/17 07:19 72 16 10/11/17 04:27 99.1 F 69 18 150/72 H 94 L Weight Admit Weight 320 lb 12.3 oz Weight 306 lb Most Recent Monitor Data Heart Rate from ECG 79 NIBP 152/65 NIBP BP-Mean 89 Respiration from ECG 30 SpO2 97 I&O: 10/10/17 10/11/17 10/12/17 06:59 06:59 06:59 Intake Total 600 200 300 Output Total 1600 100 Balance -1000 100 300 Result Diagrams: 10/11/17 05:34 10/11/17 05:34 Additional Labs: Accuchecks 10/11/17 10/11/17 10/11/17 10:48 04:46 01:03 POC Glucose 138 H 129 H 136 H 10/10/17 16:04 POC Glucose 139 H Phys Exam - Physical Examination Constitutional: NAD Respiratory: no wheezing, no rhonchi Cardiovascular: RRR, no rub Gastrointestinal: soft, non-tender, positive bowel sounds Dx/Plan - Plan DVT proph w/lovenox, DVT proph w/SCDs IMPRESSION: 1. COPD 2. ANDREW 3. Morbid Obesity BMI 43.9 4. HTN 5. Chronic pain syndrome 6. Impaired glucose tolerance A1c 6.4 7. Acute hypoxic/Hypercapnic resp failure - resolved/ Hyperkalemia - resolved/ Chronic Anemia / BPH PLAN: * Possible dc to NH today * RN will confirm with Primary service regarding Lovenox dosing at dc * Home med rec completed * Sleep study as outpt Review of Systems - Review of Systems Respiratory: negative: Cough, Dry, Shortness of Breath, Hemoptysis, SOB with Excertion, Pleuritic Pain, Sputum, Wheezing Cardiovascular: negative: Chest Pain, Palpitations, Orthopnea, Paroxysmal Noc. Dyspnea, Edema, Light Headedness - Medications/Allergies Allergies/Adverse Reactions: Allergies Allergy/AdvReac Type Severity Reaction Status Date / Time No Known Allergies Allergy Verified 09/27/17 11:13 Medications: Current Medications Acetaminophen (Tylenol) 650 mg PO Q4H PRN PRN Reason: SUTTON/Fever Or Mild Pain (1-3) Acetaminophen/Codeine Phosphate (Tylenol #3) 1 tab PO Q3H PRN PRN Reason: Mild Pain (1-3) Hydrocodone Bitart/Acetaminophen (Plummer 7.5/325) 1 tab PO Q4H PRN PRN Reason: Moderate Pain (4-6) Last Admin: 10/05/17 16:11 Dose: 1 tab Al Hydroxide/Mg Hydroxide (Maalox) 30 ml PO Q4H PRN PRN Reason: Indigestion Albuterol/Ipratropium (Duoneb) 3 ml NEB [id number] [facility] Last Admin: 10/11/17 07:19 Dose: 3 ml Amlodipine Besylate (Norvasc) 5 mg PO DAILY [facility] Last Admin: 10/11/17 08:26 Dose: 5 mg Atorvastatin Calcium (Lipitor) 20 mg PO DAILY [facility] Last Admin: 10/11/17 08:25 Dose: 20 mg Bisacodyl (Dulcolax) 10 mg NJ Q12H PRN PRN Reason: Constipation Brimonidine Tartrate (Alphagan 0.2% [facility]) 1 drop EA EYE BID [facility] Last Admin: 10/11/17 08:27 Dose: 1 drop Cefdinir (Omnicef) 300 mg PO BID [facility] Stop: 10/12/17 09:01 Last Admin: 10/11/17 08:26 Dose: 300 mg Clonidine (Catapres) 0.2 mg PO TID [facility] Last Admin: 10/11/17 08:26 Dose: 0.2 mg Dextrose/Water (Dextrose 50%) 25 gm SLOW IVP PRN PRN PRN Reason: Hypoglycemia Enoxaparin Sodium (Lovenox) 40 mg SC 2100 [facility] Last Admin: 10/10/17 22:10 Dose: 40 mg Furosemide (Lasix) 40 mg PO DAILY [facility] Last Admin: 10/11/17 08:25 Dose: 40 mg Gabapentin (Neurontin) 300 mg PO TID [facility] Last Admin: 10/11/17 08:26 Dose: 300 mg Glucagon (Glucagon) 1 mg IM PRN PRN PRN Reason: Hypoglycemia Hydralazine HCl (Apresoline) 10 mg SLOW IVP Q4H PRN PRN Reason: SBP Greater Than 180 Last Admin: 10/07/17 04:55 Dose: 10 mg Dextrose/Water (D5w) 1,000 mls @ 0 mls/hr IV .Q0M PRN; As Directed PRN Reason: Hypoglycemia Insulin Human Lispro (Humalog) 0 units SC .MODERATE SLIDING SC PRN PRN Reason: Moderate Correctional Scale Latanoprost (Xalatan 0.005% Ophth Soln) 1 drop EA EYE DAILY [facility] Last Admin: 10/11/17 08:27 Dose: 1 drop Losartan Potassium (Cozaar) 50 mg PO DAILY [facility] Last Admin: 10/11/17 08:27 Dose: 50 mg Magnesium Hydroxide (Milk Of Magnesium) 30 ml PO Q12H PRN PRN Reason: Constipation Metoprolol Succinate (Toprol Xl) 25 mg PO DAILY [facility] Last Admin: 10/11/17 08:25 Dose: 25 mg Morphine Sulfate (Morphine) 2 mg SLOW IVP Q1H PRN PRN Reason: Severe Pain (7-10) Last Admin: 10/05/17 03:51 Dose: 2 mg Ondansetron HCl (Zofran) 4 mg IVP Q6H PRN PRN Reason: Nausea Last Admin: 10/07/17 04:55 Dose: 4 mg Promethazine HCl (Phenergan) 12.5 mg IM Q4H PRN PRN Reason: Nausea/Vomiting Sodium Chloride (Flush - Normal Saline) 10 ml IVF PRN PRN PRN Reason: Saline Flush Tamsulosin HCl (Flomax) 0.4 mg PO DAILY [facility] Last Admin: 10/11/17 08:25 Dose: 0.4 mg Timolol Maleate (Timoptic 0.5% Ophth Soln) 1 drop EA EYE BID [facility] Last Admin: 10/11/17 08:24 Dose: 1 drop Tizanidine HCl (Zanaflex) 4 mg PO Q6H PRN PRN Reason: Muscle Spasm Last Admin: 10/05/17 14:24 Dose: 4 mg Tramadol HCl (Ultram) 50 mg PO Q6H PRN PRN Reason: Mild Pain (1-3) Last Admin: 10/06/17 13:17 Dose: 50 mg
--- NOTE | 2017-10-12 13:45 | DIS ---
DATE OF ADMISSION: 10/04/2017 DATE OF DISCHARGE: 10/11/2017 DISCHARGE DIAGNOSES: 1. Cervical spondylosis with myelopathy. 2. Undiagnosed and untreated sleep apnea. 3. Hypoventilation, status post cervical spine surgery. 4. Morbid obesity. 5. Chronic obstructive pulmonary disease. 6. Benign prostatic hypertrophy. 7. Hypertension. On the day of 10/04/2017, Mr. Correa was admitted to undergo anterior cervical discectomy and fusio n with Dr. Saucedo at C3 through C5 with posterior cervical laminectomies and fusion from C3-C5. Imme diately, postoperatively, the patient did retain CO2 after extubation causing him to require a code b lue. The patient was eventually revived and placed on BiPAP and eventually weaned to oxygen via nasa l cannula. The patient did recover well postoperatively, although did require management of his mult iple comorbidities listed above. He was discharged to senior care facility on 10/11/2017, again doing well postoperatively with only some bilateral shoulder discomfort and some occasional neck pain . He was tolerating clear liquids, ambulating some, voiding, and again with good pain control. Appr opriate outpatient followup appointments were scheduled and appropriate patient education materials w ere provided. At the time of discharge, the patient and his friends were pleased with his outcome po stoperatively.
== END 2017-10-11 14:30 | DRG 471 ==
LOC: SURG A 10-04 05:39 → CCU 10-04 14:38 → SURG A 10-06 19:51
PROVIDERS: ADMIT Surgery; ATTEND Surgery
PROC: 0RG20AJ Fusion of 2 or more Cervical Vertebral Joints with Interbody Fusion Device, Posterior Approach, Anterior Column, Open Approach (ICD-10-PCS; principal; 2017-10-04)
PROC: 0RG20A0 Fusion of 2 or more Cervical Vertebral Joints with Interbody Fusion Device, Anterior Approach, Anterior Column, Open Approach (ICD-10-PCS; 2017-10-04)
PROC: 00NW0ZZ Release Cervical Spinal Cord, Open Approach (ICD-10-PCS; 2017-10-04)
PROC: 0RB30ZZ Excision of Cervical Vertebral Disc, Open Approach (ICD-10-PCS; 2017-10-04)
PROC: 0RH104Z Insertion of Internal Fixation Device into Cervical Vertebral Joint, Open Approach (ICD-10-PCS; 2017-10-04)
PROC: 5A09357 Assistance with Respiratory Ventilation, Less than 24 Consecutive Hours, Continuous Positive Airway Pressure (ICD-10-PCS; 2017-10-04)
DX: M48.02 Spinal stenosis, cervical region (principal); J69.0 Pneumonitis due to inhalation of food and vomit; J96.01 Acute respiratory failure with hypoxia; J96.02 Acute respiratory failure with hypercapnia; J44.0 Chronic obstructive pulmonary disease with (acute) lower respiratory infection; G95.20 Unspecified cord compression; I97.121 Postprocedural cardiac arrest following other surgery; Z68.41 Body mass index [BMI] 40.0-44.9, adult; J44.1 Chronic obstructive pulmonary disease with (acute) exacerbation; M47.12 Other spondylosis with myelopathy, cervical region; E66.01 Morbid (severe) obesity due to excess calories; G47.33 Obstructive sleep apnea (adult) (pediatric); R27.0 Ataxia, unspecified; Z86.73 Personal history of transient ischemic attack (TIA), and cerebral infarction without residual deficits; Z87.891 Personal history of nicotine dependence; E87.5 Hyperkalemia; I10 Essential (primary) hypertension; M35.3 Polymyalgia rheumatica; N40.0 Benign prostatic hyperplasia without lower urinary tract symptoms; D64.9 Anemia, unspecified; D72.829 Elevated white blood cell count, unspecified; M54.12 Radiculopathy, cervical region
CPT/HCPCS: 36415; 36416; 71010; 76001; 80048; 82553; 82805; 83036; 84443; 84484; 85025; 87070; 87205; 90471; 90732; 93005; 93010; 93306; 94640; 94660; 96374; A4216; C1713; G0009; G8978-GP-CM; G8979-GP-CK; G8987-GO-CM; G8988-GO-CK; J0171; J0360; J0692; J1100; J1170; J1650; J1940; J2001; J2270; J2310; J2405; J2704; J3370; J3490; J7620